=== PATIENT | female | born 1975 | race Caucasian/White ===

== ENCOUNTER 2021-10-01 15:16 | Inpatient (IN) | payer MEDICAID, OTHER, SELFPAY ==
[2021-10-01] MEDS ORDERED: Acetaminophen 500 MG TAB PO PRN (15:37)
[2021-10-01] MEDS ORDERED: Ondansetron PF 4 MG/2 ML Vial IVP PRN ×2 (15:37→22:34)
[2021-10-01] MEDS ORDERED: Promethazine HCl 25 MG/ML VIAL IM PRN ×2 (15:37→22:34)
[2021-10-01] MEDS ORDERED: Bicitra 30 ML UDCUP PO PRN (15:37)
[2021-10-01] MEDS ORDERED: hydrALAZINE 20 MG/ML VIAL SLOW IVP PRN (15:37)
[2021-10-01] MEDS ORDERED: Docusate 100 MG CAP PO PRN (15:37)
[2021-10-01] MEDS ORDERED: Famotidine/PF 20 mg/2ml Vial SLOW IVP PRN (15:37)
[2021-10-01] MEDS ORDERED: Azithromycin 500 MG in Sodium Chloride 0.9% 250 ML 250 ML IVPB SCH (15:45)
[2021-10-01] MEDS ORDERED: CEFAZOLIN 2 GM in Premix Bag 1 BAG IVPB SCH (15:45)
[2021-10-01] MEDS: Lactated Ringer's 1,000 ML IV SCH (17:15)
[2021-10-01 17:52] VITALS: BMI 28.0
[2021-10-01 17:52] LABS: Hemoglobin 11.9 g/dL (12.0-15.5); Mean Corpuscular HGB CONC 32.8 g/dL (32.0-36.0); Mean Corpuscular Hemoglobin 27.3 pg (27.0-33.0); Mean Corpuscular Volume 83.3 fl (81.6-98.3); Mean Platelet Volume 12.3 fl (7.4-10.4); Platelet Count 209 10x3/uL (150-450); RBC Distribution Width 14.9 % (11.5-14.5); Red Blood Cell (RBC) Count 4.36 10x6/uL (3.90-5.03); White Blood Cell (WBC) Count 6.5 10x3/uL (3.5-10.5)
[2021-10-01 18:23] LABS: Hep B Surf Ag Non-Reactive S/CO (NonReactive); Syphilis Antibody Nonreactive (Nonreactive); Syphilis Antibody Index 0.03 S/CO (<1.00 Non-Reactive)
[2021-10-01 18:35] LABS: HBSAg Index 0.23 S/CO (0-0.99)
[2021-10-01] MEDS ORDERED: Morphine PF 10 MG/10 ML VIAL ONE (20:46)
[2021-10-01] MEDS ORDERED: Oxytocin 10 UNITS/ML VIAL ONE (20:46)
[2021-10-01] MEDS ORDERED: Ondansetron PF 4 MG/2 ML Vial ONE (20:51)
[2021-10-01] MEDS ORDERED: Meperidine HCl/PF 25 MG/ML VIAL SLOW IVP PRN (22:34)
[2021-10-01] MEDS ORDERED: Promethazine HCl 25 MG SUPP PR PRN (22:34)
[2021-10-01] MEDS ORDERED: Ondansetron HCl/PF 4 MG/2 ML Vial IVP PRN (22:34)
[2021-10-01] MEDS ORDERED: Hydrocerin (Eucerin) Cream 120 gm Jar TOP PRN (22:34)
[2021-10-01] MEDS ORDERED: Naloxone HCl 0.4 mg/ml Vial IV PRN (22:34)
[2021-10-01] MEDS ORDERED: Naloxone HCl 0.4 mg/ml Vial IVP PRN ×2 (22:34)
[2021-10-01] MEDS ORDERED: Fentanyl 100 MCG/2 ML VIAL SLOW IVP PRN (22:34)
[2021-10-01] MEDS ORDERED: diphenhydrAMINE 50 MG/ML VIAL IVP PRN (22:34)
[2021-10-01] MEDS ORDERED: Communication Order-Pharmacy FS SCH (22:45)
[2021-10-01] MEDS ORDERED: Ketorolac Tromethamine 30 MG/ML VIAL IVP SCH (22:45)
[2021-10-02] MEDS ORDERED: Meperidine HCl/PF 25 MG/ML VIAL ONE (00:18)
[2021-10-02] MEDS ORDERED: Misoprostol 200 MCG TAB PR PRN (03:32)
[2021-10-02] MEDS ORDERED: Boostrix 0.5 ML (Tdap) VIAL IM ONE (03:32)
[2021-10-02] MEDS ORDERED: Ondansetron PF 4 MG/2 ML Vial IVP PRN (03:32)
[2021-10-02] MEDS ORDERED: Lanolin Ointment 7 GM TUBE TOP PRN (03:32)
[2021-10-02] MEDS ORDERED: Methylergonovine 0.2 MG/ML VIAL IM PRN (03:32)
[2021-10-02] MEDS ORDERED: Simethicone Chewable 80 MG TAB PO PRN (03:32)
[2021-10-02] MEDS ORDERED: hydrALAZINE 20 MG/ML VIAL SLOW IVP PRN (03:32)
[2021-10-02] MEDS ORDERED: NS w/ Oxytocin 30 units 500 ML IV SCH (03:32)
[2021-10-02] MEDS ORDERED: diphenhydrAMINE 25 MG CAP PO PRN (03:32)
[2021-10-02] MEDS: Ketorolac Tromethamine 30 MG/ML VIAL IVP PRN ×2 (09:00→15:22)
[2021-10-02] MEDS: Docusate Calcium (SURFAK) 240 MG CAP PO SCH ×2 (10:05→21:09)
[2021-10-02] MEDS: Ferrous Sulfate 325 MG TAB PO SCH ×2 (10:05→21:00)
[2021-10-02] MEDS: Prenatal Vitamin 1 TAB PO SCH (10:05)
[2021-10-02] MEDS ORDERED: HYDROcodone/Acetaminophen 5/325 mg Tablet PO PRN ×2 (10:45)
[2021-10-03 05:20] LABS: Hemoglobin 10.2 g/dL (12.0-15.5); Mean Corpuscular HGB CONC 32.1 g/dL (32.0-36.0); Mean Corpuscular Hemoglobin 26.8 pg (27.0-33.0); Mean Corpuscular Volume 83.7 fl (81.6-98.3); Platelet Count 178 10x3/uL (150-450); RBC Distribution Width 15.1 % (11.5-14.5); White Blood Cell (WBC) Count 6.7 10x3/uL (3.5-10.5)
[2021-10-03] MEDS: Ibuprofen 800 MG TAB PO SCH ×2 (06:04→14:59)
[2021-10-03 08:06] VITALS: BP 110/53; TEMP 98.3
[2021-10-03] MEDS: Lactated Ringer's 1,000 ML IV SCH (08:44)
[2021-10-03] MEDS: Docusate Calcium (SURFAK) 240 MG CAP PO SCH (08:53)
[2021-10-03] MEDS: Prenatal Vitamin 1 TAB PO SCH (08:53)
[2021-10-03] MEDS: Ferrous Sulfate 325 MG TAB PO SCH (08:54)
[2021-10-03 16:21] LABS: SARS-CoV-2 PCR by NAA Not Detected (NotDetected)
== END 2021-10-03 16:41 | disposition home or self-care (01) | DRG 788 ==
LOC: CSHLD/OP 15:16 → CSHLD 22:04 → CSHPED 10-02 09:54
PROVIDERS: ADMIT Obstetrics & Gynecology; ATTEND Obstetrics & Gynecology
PROC: 10D00Z1 Extraction of Products of Conception, Low, Open Approach (ICD-10-PCS; principal; 2021-10-01)
DX: O41.03X0 Oligohydramnios, third trimester, not applicable or unspecified (principal); O34.211 Maternal care for low transverse scar from previous cesarean delivery; Z37.0 Single live birth; Z3A.38 38 weeks gestation of pregnancy; O24.429 Gestational diabetes mellitus in childbirth, unspecified control; Z20.822 Contact with and (suspected) exposure to COVID-19; Z79.82 Long term (current) use of aspirin; O76 Abnormality in fetal heart rate and rhythm complicating labor and delivery
CPT/HCPCS: 36415; 85027; 86780; 86850; 86900; 86901; 87340; 88307; J0456; J0690; J1885; J2175; J2274; J2405; J2590; J7050; S0028; U0003; U0005